=== PATIENT | female | born 1965 | race Caucasian/White ===

== ENCOUNTER → 2018-03-04 11:04 | Outpatient (CLI) | payer OTHER ==
[2011-04-20 12:15] VITALS: BMI 35.1
== END | disposition home or self-care (01) ==
LOC: D.MRI 02-25 11:00
DX: M54.16 Radiculopathy, lumbar region (principal)

== ENCOUNTER → 2018-03-14 12:17 | Outpatient (CLI) | payer OTHER ==
[2011-04-20 12:15] VITALS: BMI 35.1
== END | disposition home or self-care (01) ==
LOC: D.MRI 12:17
DX: G37.9 Demyelinating disease of central nervous system, unspecified (principal)

== ENCOUNTER 2020-03-02 16:18 | Inpatient (IN) | payer BC ==
[~2020-03-02] VITALS: Ht 160 cm; Wt 115.4 kg
[2020-03-02 17:30] LABS: BASOPHILS 0.2 % (0-2); EOSINOPHILS 0 % (0-7); HEMATOCRIT 39.3 % (36.0-48.0); HEMOGLOBIN 12.7 g/dL (12-16); LYMPHOCYTES 20.2 % (15-50); MCH 29.5 pg (26.0-34.0); MCHC 32.3 g/dL (31.0-37.0); MCV 91.2 fL (80.0-100.0); MEAN PLATELET VOLUME 10.3 fL (7.4-10.4); MONOCYTES 4.4 % (2-11); NEUTROPHILS 74.2 % (40-80); PLATELET COUNT 174 10x3/uL (130-400); RBC 4.31 10x6/uL (4.00-5.40); RDW 13.6 % (11.5-14.5); WBC 5.2 10x3/uL (4.8-10.8)
[2020-03-02 17:40] LABS: APTT 27.6 SECONDS (22.8-39.4); INR 0.92 (0.85-1.17); PROTIME 12.3 SECONDS (11.6-15.0)
[2020-03-02 18:00] LABS: ALBUMIN 3.2 g/dL (3.4-5.0); ALKALINE PHOSPHATASE 95 U/L (30-120); ALT (SGPT) 33 U/L (10-68); BILIRUBIN - TOTAL 0.49 mg/dL (0.2-1.3); CALC OSMOLALITY 285 mosm/kg (275-300); CALCIUM 8.4 mg/dL (8.5-10.1); CARBON DIOXIDE 30.5 mmol/L (21.0-32.0); CHLORIDE - SERUM 104 mmol/L (98-107); CKMB 0.3 U/L (0.0-3.6); CREATINE KINASE 62 UL (21-215); CREATININE - SERUM 1.8 mg/dL (0.6-1.3); GLUCOSE 111 mg/dL (74-106); POTASSIUM - SERUM 4.3 mmol/L (3.5-5.1); PRO BNP 40 pg/mL (0-125); PROTEIN - SERUM 7.2 g/dL (6.4-8.2); SODIUM 140 mmol/L (136-145); UREA NITROGEN 30 mg/dL (7-18); eGFR NON AFRICAN AMERICAN 31 mL/min (90-120)
[2020-03-02 18:07] LABS: TROPONIN-I < 0.017 ng/mL (0.000-0.060)
[2020-03-02 18:57] VITALS: BP 111/69
[2020-03-02 19:39] VITALS: BP 114/51
--- NOTE | 2020-03-02 21:54 | NUR ---
REPORT RECEIVED, PT CARE ASSUMED. AWAITING PT'S ARRIVAL TO 2128.
[2020-03-02 22:36] VITALS: BP 161/82
[2020-03-03 03:50] VITALS: BP 141/84
[2020-03-03 06:29] LABS: BASOPHILS 0.3 % (0-2); EOSINOPHILS 0 % (0-7); HEMATOCRIT 36.6 % (36.0-48.0); HEMOGLOBIN 11.8 g/dL (12-16); IMMATURE GRANULOCYTES 0.8 % (0-5); LYMPHOCYTES 17.6 % (15-50); MCH 29.1 pg (26.0-34.0); MCHC 32.2 g/dL (31.0-37.0); MCV 90.4 fL (80.0-100.0); MEAN PLATELET VOLUME 10.3 fL (7.4-10.4); MONOCYTES 3.6 % (2-11); NEUTROPHILS 77.7 % (40-80); PLATELET COUNT 196 10x3/uL (130-400); RBC 4.05 10x6/uL (4.00-5.40); RDW 13.3 % (11.5-14.5)
[2020-03-03 06:40] LABS: WBC 3.6 10x3/uL (4.8-10.8)
[2020-03-03 07:42] VITALS: BP 142/86
[2020-03-03 07:48] LABS: ANION GAP 16.8 mmol/L (8-16); CALCIUM 8.5 mg/dL (8.5-10.1); CREATININE - SERUM 1.4 mg/dL (0.6-1.3); MAGNESIUM - SERUM 2.2 mg/dL (1.8-2.4); PHOSPHOROUS 3.5 mg/dL (2.5-4.9); POTASSIUM - SERUM 4.4 mmol/L (3.5-5.1)
[2020-03-03 07:49] LABS: CARBON DIOXIDE 21.6 mmol/L (21.0-32.0)
[2020-03-03] MEDS ORDERED: HYDROXYCHLOROQ200 MG PO (07:51)
[2020-03-03] MEDS ORDERED: CYCLOBENZAPRINE10 MG PO (07:52)
[2020-03-03] MEDS ORDERED: VOLTAREN75 MG PO (07:52)
[2020-03-03] MEDS ORDERED: VALSARTAN-HCTZ1 EAC2 PO (07:53)
[2020-03-03] MEDS ORDERED: ELAVIL10 MG PO (07:54)
[2020-03-03] MEDS ORDERED: GABAPENTIN300 MG PO (07:56)
[2020-03-03] MEDS ORDERED: GABAPENTIN100 MG PO (07:57)
[2020-03-03] MEDS ORDERED: NEURONTIN600 MG PO (07:57)
[2020-03-03] MEDS ORDERED: VITAMIN D5000 UNI1 PO (07:58)
[2020-03-03] MEDS ORDERED: PROTONIX40 MG PO (07:59)
[2020-03-03] MEDS ORDERED: ZYLOPRIM300 MG PO (07:59)
[2020-03-03] MEDS ORDERED: SYNTHROID50 MCG PO (08:00)
[2020-03-03] MEDS ORDERED: MECLIZINE HCL25 MG PO (08:03)
[2020-03-03 11:59] VITALS: BMI 44.3
--- NOTE | 2020-03-03 12:26 | NUR ---
PT NEGATIVE FOR COVID 19. MADE ROUNDS WITH DR. MCCORMICK. INFORMED PT OF NEGATIVE RESULTS. PT DENIES ANY NEEDS AT THIS TIME. CALL LIGHT IN REACH, NAD NOTED, WILL CONTINUE TO MONITOR.
[2020-03-03 14:37] LABS: BILIRUBIN NEGATIVE (NEGATIVE); GLUCOSE NEGATIVE (NEGATIVE); KETONE NEGATIVE (NEGATIVE); NITRITE NEGATIVE (NEGATIVE); UROBILINOGEN NORMAL (NORMAL)
[2020-03-03 16:32] VITALS: BP 115/62
--- NOTE | 2020-03-03 16:41 | NUR ---
HELPED PT UP TO BATHROOM AND BACK TO BED, PT DENIES ANY NEEDS AT THIS TIME. CALL LIGHT IN REACH, NAD NOTED, WILL CONTINUE TO MONITOR.
[2020-03-04 04:00] VITALS: BP 122/62
[2020-03-04 07:06] LABS: BASOPHILS 0.1 % (0-2); EOSINOPHILS 0 % (0-7); HEMATOCRIT 34.8 % (36.0-48.0); HEMOGLOBIN 11.2 g/dL (12-16); IMMATURE GRANULOCYTES 1.1 % (0-5); LYMPHOCYTES 10.3 % (15-50); MCH 28.9 pg (26.0-34.0); MCHC 32.2 g/dL (31.0-37.0); MCV 89.9 fL (80.0-100.0); MEAN PLATELET VOLUME 10.4 fL (7.4-10.4); NEUTROPHILS 83.5 % (40-80); PLATELET COUNT 213 10x3/uL (130-400); RBC 3.87 10x6/uL (4.00-5.40); RDW 13.6 % (11.5-14.5)
--- NOTE | 2020-03-04 07:20 | NUR ---
RECIEVE REPORT. RESTING IN BED. TEARFULLY EXPRESSES BEING WORRIED ABOUT SPOUSE AT HOME. O2 NC ON FOR SOB. DENIES ANY NEEDS. CONTINUE PLAN OF CARE AND SAFETY PRECAUTIONS.
[2020-03-04 08:00] VITALS: BP 124/58
[2020-03-04 11:00] VITALS: BP 124/59
[2020-03-04 14:21] LABS: ANION GAP 14.1 mmol/L (8-16); CALCIUM 8.6 mg/dL (8.5-10.1); CARBON DIOXIDE 21.3 mmol/L (21.0-32.0); CREATININE - SERUM 1.5 mg/dL (0.6-1.3); MAGNESIUM - SERUM 1.8 mg/dL (1.8-2.4)
[2020-03-04 14:24] LABS: PHOSPHOROUS 2.6 mg/dL (2.5-4.9); POTASSIUM - SERUM 3.4 mmol/L (3.5-5.1)
[2020-03-04 15:00] VITALS: BP 156/54
--- NOTE | 2020-03-04 15:23 | MORECARE ---
CASE MANAGEMENT DISCHARGE SUMMARY PATIENT: JOANNA PROCTRO UNIT: [id number] ADM DATE: 03/02/20 AGE: 54 : 67 SEX: F ROOM/BED: D.0334 AUTHOR: PRINCE LINK PHYSICIAN: REFERRING PHYSICIAN: DMITRIY SUE MD DATE OF SERVICE: 03/04/20 Discharge Plan Patient Name: JOANNA PROCTOR Facility: [facility]:[place] : 1965 Planned Disposition: Home Anticipated Discharge Date: Discharge Date: Expected LOS: 0 Initial Reviewer: [email or web address] Initial Review Date: 03/02/2020 Generated: 03/04/20 4:22 pm Comments DCP- Discharge Planning Updated by [email or web address]: Lisa Fernandez on 03/04/20 2:[address] DC Plan: Return home. Patient will require a walk test prior to DC, if she requires a Nebulizer, would MD please lace the order. CM met with patient to discuss initial discharge planning. Patient is in agreement to proceed with the assessment. Patient reports that she lives at home independently with her , who is blind and has tested positive for COVID. Patient is alert/oriented. Stairs/steps: 4 w/rails. PCP: Dr. Powell. Pharmacy: [facility]. Patient states she has been able to obtain all of her prescribed medications. HHS: No. DME: No. Patient gives permission to speak with family members. Emergency contact: Wilman Proctor (spouse) [phone]. 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 CM discussed the availability of HH, Rehab, SNF, OP Therapy, DME services. At this time, patient denies the need for additional services and feels safe returning to previous environment. Patient denies hospitalization within the past 30 days. Patient denies the use of community resources HIGH PRESSURE CLEANER. Transportation at time of discharge: Unknown. Patient Name: JOANNA PROCTOR Page [phone] at 1523 All edits/amendments must be made on the electronic document DICTATION DATE: 03/04/20 152 [facility] SALES: ANGELINA 03/04/20 152 RPT#: [id number] DC DATE: STATUS: ADM IN [facility] [address] [place] [address] END OF REPORT
--- NOTE | 2020-03-04 15:30 | MORECARE ---
CASE MANAGEMENT DISCHARGE SUMMARY PATIENT: JOANNA PROCTOR UNIT: [id number] ADM DATE: 03/02/20 AGE: 54 : 67 SEX: F ROOM/BED: D.4257 AUTHOR: FARIBADOC PHYSICIAN: REFERRING PHYSICIAN: DMITRIY SUE MD DATE OF SERVICE: 03/04/20 Discharge Plan Patient Name: JOANNA PROCTOR Facility: [facility]:[place] : 1965 Planned Disposition: Home Anticipated Discharge Date: Discharge Date: Expected LOS: 0 Initial Reviewer: [email or web address] Initial Review Date: 03/02/2020 Generated: 03/04/20 4:30 pm Comments DCP- Discharge Planning Updated by [email or web address]: Lisa Fernandez on 03/04/20 2:[address] DC Plan: Return home. Patient will require a walk test prior to DC, if she requires a Nebulizer, would MD please lace the order. CM met with patient to discuss initial discharge planning. Patient is in agreement to proceed with the assessment. Patient reports that she lives at home independently with her , who is blind and has tested positive for COVID. Patient is alert/oriented. Stairs/steps: 4 w/rails. PCP: Dr. Powell. Pharmacy: [facility]. Patient states she has been able to obtain all of her prescribed medications. HHS: No. DME: No. Patient gives permission to speak with family members. Emergency contact: Wilman Proctor (spouse) [phone]. 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 CM discussed the availability of HH, Rehab, SNF, OP Therapy, DME services. At this time, patient denies the need for additional services and feels safe returning to previous environment. Patient denies hospitalization within the past 30 days. Patient denies the use of community resources ENVIRONMENTAL HEALTH AIDE. Transportation at time of discharge: Unknown. DCPIA - Discharge Planning Initial Assessment Updated by [email or web address]: Lisa Fernandez on 03/04/20 3:24 pm * Is the patient Alert and Oriented? Yes * How many steps to enter\exit or inside your home? 4 w/rails * PCP Dr. Powell * Pharmacy [facility] * Preadmission Environment Home with Family * ADLs Independent * Equipment None * Other Equipment May require Nebulizer, Home & portable O2 * List name and contact numbers for known caregivers / representatives who currently or will assist patient after discharge: Eze Proctor spouse) [phone] * Verbal permission to speak to the caregivers and representatives has been obtained from the patient. Yes * Community resources currently utilized None * Please name any agencies selected above. NA * Additional services required to return to the preadmission environment? No * Can the patient safely return to the preadmission environment? Yes * Has this patient been hospitalized within the prior 30 days at any hospital? No Patient Name: JOANNA PROCTOR Page [phone] at 1530 All edits/amendments must be made on the electronic document DICTATION DATE: 03/04/20 153 SWATCH PASTER: ANGELINA 03/04/20 153 RPT#: [id number] DC DATE: STATUS: ADM IN [facility] [address] [place] [address] END OF REPORT
--- NOTE | 2020-03-04 16:23 | NUR ---
ALERT AND ORIENTED X4. SITTING UP IN BED. DROPLET ISOLATION INITIATED. COVID TEST COMPLETE TAKEN TO LAB. REPORTS UPDRAFTS CAUSING ANXIETY. NOTIFY .
[2020-03-04 16:54] LABS: C-REACTIVE PROTEIN 1.3 mg/dL (0.0-0.9)
[2020-03-04 19:14] LABS: BILIRUBIN - TOTAL 0.26 mg/dL (0.2-1.3); PROTEIN - SERUM 6.1 g/dL (6.4-8.2)
[2020-03-04 20:43] VITALS: BP 136/64
--- NOTE | 2020-03-04 20:45 | NUR ---
PT SITTING UP IN BED. WATCHING TV. ALERT AND ORIENTED. PT STATES SHE HAS NO FURTHER NEEDS AT THIS TIME. WILL CONTINUE TO MONITOR. BED LOW. CL IN REACH.
--- NOTE | 2020-03-05 02:11 | NUR ---
RESTING WITH EYES CLOSED, RESPERAIONS EVEN, NO S/S DISTRESS NOTED.
--- NOTE | 2020-03-05 04:13 | NUR ---
I have reviewed this patient and I concur with the Shift Assessment completed by the Licensed Practical Nurse today this shift.
[2020-03-05 08:25] VITALS: BP 139/88
[2020-03-05 11:57] VITALS: BP 158/70
[2020-03-05 13:35] VITALS: BMI 43.2
[2020-03-05 13:54] LABS: BASOPHILS 0.1 % (0-2); EOSINOPHILS 0.1 % (0-7); HEMATOCRIT 36.3 % (36.0-48.0); HEMOGLOBIN 11.6 g/dL (12-16); IMMATURE GRANULOCYTES 1.8 % (0-5); LYMPHOCYTES 7.9 % (15-50); MCH 28.9 pg (26.0-34.0); MCV 90.5 fL (80.0-100.0); MEAN PLATELET VOLUME 10.3 fL (7.4-10.4); MONOCYTES 3.1 % (2-11); PLATELET COUNT 223 10x3/uL (130-400); RBC 4.01 10x6/uL (4.00-5.40); RDW 13.6 % (11.5-14.5)
[2020-03-05 13:55] LABS: WBC 15.3 10x3/uL (4.8-10.8)
[2020-03-05 14:05] LABS: ANION GAP 11.6 mmol/L (8-16); CALCIUM 8.5 mg/dL (8.5-10.1); CARBON DIOXIDE 25.1 mmol/L (21.0-32.0); CREATININE - SERUM 1.4 mg/dL (0.6-1.3); MAGNESIUM - SERUM 2.1 mg/dL (1.8-2.4); PHOSPHOROUS 2.8 mg/dL (2.5-4.9); POTASSIUM - SERUM 3.7 mmol/L (3.5-5.1)
--- NOTE | 2020-03-05 14:11 | NUR ---
IV RESITE FROM LEFT AC TO RIGHT AC, LABS DRAWN AND SENT.
[2020-03-05 16:17] VITALS: BP 158/74
--- NOTE | 2020-03-05 18:34 | NUR ---
I have reviewed this patient and I concur with the Shift Assessment completed by the Licensed Practical Nurse today this shift.
--- NOTE | 2020-03-05 21:32 | NUR ---
RECEIVED PATIENT FROM [facility]. PATIENT TRANSFERS WELL FROM WHEEL CHAIR TO BED WITH ONE PERSON ASSIST. DENIES PAIN AT THIS TIME. ASSESSMENT COMPLETE. CALL LIGHT CLOSE. CPOCC
--- NOTE | 2020-03-06 02:05 | NUR ---
CALL FROM TELEMETRY THAT PATIENT HEART RATE RUNNING IN THE 30S. CHECKED ON PATIENT. AROUSES, STATES SHE FEELS FINE. DENIES DISCOMFORT OR PAIN.
--- NOTE | 2020-03-06 02:26 | NUR ---
PAGESue GARSIA,SUPERVISOR ELECTRONICS INSPECTION TO NOTIFY OF SINUS BRADYCARDIA.
[2020-03-06 04:00] VITALS: BP 141/72
[2020-03-06 06:39] LABS: ANION GAP 14.6 mmol/L (8-16); CALCIUM 9.1 mg/dL (8.5-10.1); CARBON DIOXIDE 20.6 mmol/L (21.0-32.0); CREATININE - SERUM 1.3 mg/dL (0.6-1.3); MAGNESIUM - SERUM 2.3 mg/dL (1.8-2.4); POTASSIUM - SERUM 4.2 mmol/L (3.5-5.1)
[2020-03-06 06:40] LABS: PHOSPHOROUS 3.7 mg/dL (2.5-4.9)
--- NOTE | 2020-03-06 07:05 | NUR ---
A&O RESTING IN BED WITH EYES OPEN. NO C/O PAIN. NO S/S OF ACUTE DISTRESS NOTED. BLE EDEMA-GENERALIZED. ON 3L 02, NC. IV TO RIGHT AC, NS INFUSING @ 75ML/HR. SITE PATENT WITHOUT REDNESS OR SWELLING. ON TELEMETRY SB 43. CARDIOLOGY CONSULTED FOR BRADICARDIA. DENIES ANY NEEDS AT THIS TIME. CALL LIGHT IN REACH. WILL CONTINUE TO MONITOR.
[2020-03-06 09:05] LABS: HEMATOCRIT 36.6 % (36.0-48.0); HEMOGLOBIN 11.7 g/dL (12-16); MCV 90.8 fL (80.0-100.0); MEAN PLATELET VOLUME 10.9 fL (7.4-10.4); PLATELET COUNT 214 10x3/uL (130-400); RBC 4.03 10x6/uL (4.00-5.40); RDW 13.6 % (11.5-14.5); WBC 14.1 10x3/uL (4.8-10.8)
[2020-03-06 09:27] LABS: LYMPHOCYTES 10 % (15-50); MONOCYTES 1 % (2-11); NEUTROPHILS 88 % (40-80); PLATELET ESTIMATE NORMAL; TEAR DROP CELLS OCC
[2020-03-06 09:51] VITALS: BP 104/68
--- NOTE | 2020-03-06 13:28 | NUR ---
I have reviewed this patient and I concur with the Shift Assessment completed by the Licensed Practical Nurse today this shift.
[2020-03-06 13:32] VITALS: BP 171/66
--- NOTE | 2020-03-06 15:10 | NUR ---
PT SITTING UP IN CHAIR. CL IN REACH. PHONE IN REACH. WCTM
[2020-03-06 16:45] VITALS: BP 167/73
--- NOTE | 2020-03-06 16:53 | NUR ---
PT HAS NO NEEDS AT THIS TIME. CL IN REACH. TM
[2020-03-06 20:00] VITALS: BP 150/60
[2020-03-07] VITALS: BP 176/77
[2020-03-07 03:42] VITALS: BP 126/62
[2020-03-07 07:32] LABS: BASOPHILS 0.4 % (0-2); EOSINOPHILS 0.1 % (0-7); HEMATOCRIT 37.6 % (36.0-48.0); HEMOGLOBIN 12.7 g/dL (12-16); IMMATURE GRANULOCYTES 4.7 % (0-5); LYMPHOCYTES 22.7 % (15-50); MCH 30.2 pg (26.0-34.0); MCHC 33.8 g/dL (31.0-37.0); MCV 89.3 fL (80.0-100.0); MEAN PLATELET VOLUME 12.3 fL (7.4-10.4); MONOCYTES 5.4 % (2-11); NEUTROPHILS 66.7 % (40-80); RBC 4.21 10x6/uL (4.00-5.40); RDW 13.8 % (11.5-14.5); WBC 11.2 10x3/uL (4.8-10.8)
[2020-03-07 07:34] LABS: PLATELET COUNT 397 10x3/uL (130-400)
--- NOTE | 2020-03-07 07:49 | NUR ---
RESTING IN BED WITH NO NEEDS NOTED AT THIS TIME.
[2020-03-07 08:00] LABS: ANION GAP 12.3 mmol/L (8-16); CALCIUM 7.6 mg/dL (8.5-10.1); CARBON DIOXIDE 23.1 mmol/L (21.0-32.0); CREATININE - SERUM 1.3 mg/dL (0.6-1.3)
[2020-03-07 08:04] LABS: POTASSIUM - SERUM 3.4 mmol/L (3.5-5.1)
--- NOTE | 2020-03-07 08:44 | NUR ---
2 ATTEMPTS TO CONTACT VASCULAR ACCESS TO GET PT IV ACCESS. NO ANSWER AND NO RETURN CALL YET. WILL CONTINUE TO TRY AND MAKE CONTACT. UNABLE TO START IV, X2 OTHER NURSES HAVE ALSO MADE AN ATTEMPT.
--- NOTE | 2020-03-07 08:52 | NUR ---
PT ALERT AND ORIENTED X4 UPON ENTERING. ADMINISTERED MEDICATION, NO DIFFICULTIES. ASSESSMENT PERFORMED. DENIES ANY NEEDS. WILL CONTINUE TO MONITOR.
[2020-03-07 09:12] VITALS: BP 126/69
[2020-03-07 09:37] VITALS: Ht 160 cm; Wt 115.4 kg
--- NOTE | 2020-03-07 11:54 | NUR ---
I have reviewed this patient and I concur with the Shift Assessment completed by the Licensed Practical Nurse today this shift.
--- NOTE | 2020-03-07 12:07 | NUR ---
ADMINISTERED MEDICATION, RESTING COMFORTABLY. DENIES ANY NEEDS. WILL CONTINUE TO MONITOR.
[2020-03-07 13:21] VITALS: BP 113/67
--- NOTE | 2020-03-07 13:34 | NUR ---
TALKED TO LAURA DELATORRE IN THE ICU. SHE AGREED TO ATTEMPT IV ON PATIENT.
--- NOTE | 2020-03-07 13:58 | NUR ---
Nutrition follow-up: Pt receiving a regular diet with po intake 75-100% of meals Labs reviewed Wt: 243# Pt still with SOB on exerction. PO intake good at this time RDN following.
[2020-03-07 16:00] VITALS: BP 110/59
[2020-03-07 20:00] VITALS: BP 145/72
[2020-03-08] VITALS: BP 107/63
--- NOTE | 2020-03-08 03:08 | NUR ---
ALERT AND ORENTED ABLE TO VOICE NEEDS AND WANTS TO STAFF. NO IV O2 AT 2 LETERS VIA N/C IN PLACE. RESTING IN BED WITH NO NEEDS AT THIS TIME. CALL LIGHT AND WATER IN REACH. NO S/S OF DISTRESS.
[2020-03-08 04:00] VITALS: BP 119/64
--- NOTE | 2020-03-08 07:10 | NUR ---
A&O RESTING IN BED WITH EYES OPEN. NO C/O PAIN. NO S/S OF ACUTE DISTRESS NOTED. ON 2L O2, NC. ON TELEMETRY 56 SB. NO IV ACCESS, PATIENT REFUSED. DENIES ANY NEEDS AT THIS TIME. CALL LIGHT IN REACH. WILL CONTINUE TO MONITOR.
[2020-03-08 08:55] VITALS: BP 113/68
--- NOTE | 2020-03-08 11:30 | EC ---
PATIENT:JOANNA PROCTOR DATE OF SERVICE: 03/02/20 SEX: F MEDICAL RECORD: [id number] DATE OF : [birth year] LOCATION:[facility] AGE OF PATIENT: 54 ADMISSION DATE: 03/02/20 REFERRING PHYSICIAN: INTERPRETING PHYSICIAN: LEANDRA GOODMAN MD ECHOCARDIOGRAM REPORT ECHO CHARGES 4 ECHO COMPLETE Date: 03/03/20 CLINICAL DIAGNOSIS: DYSPNEA ECHOCARDIOGRAPHIC MEASUREMENTS (adult normal given) AC root (d.<3.7cm) 2.6 cm LV Septum d (<1.2 cm> 1.0 cm Valve Excursion 1.6 cm LV Septum (systole) 2.0 cm Left Atria (s.<4.0cm> 5.0 cm LVPW d(<1.2cm) 1.0 cm RV (d.<2.3cm) 2.6 cm LVPW (sytole) 1.9 cm LV diastole(<5.6CM) 5.2 cm MV E-F(>70mm/sec) cm LV systole 2.2 cm LVOT Diameter 1.7 cm MV exc.(>10mm) cm Est.ejection fraction (50-75%) % DOPPLER: LVIT cm/sec A 68.0 cm/sec E 111 cm/sec LA cm/sec RVSP 38.0 mmHg LVOT 133 cm/sec AOP1/2T m/s Asc. Ao 178 cm/sec RVOT 69.0 cm/sec RA cm/sec PA 93.0 cm/sec AV Gradient Peak 13.0 mmHg AV Mean 6.1 mmHg AV Area 1.4 cm MV Gradient Peak 6.7 mmHg MV Mean 1.8 mmHg MV Area cm COMMENTS: Shredding Specialist: 1 PRETTY CHUOE Heart Doctor: 3 Dr. Iniguez TAPE# PACS Pericardial Effusion N DATE OF SERVICE: Adequate 2D, color flow imaging, spectral Doppler, and M-Mode. No LVH. LV internal dimension is normal. Wall motion is normal. EF is greater than or equal to 55%. Aortic valve is tricuspid. No evidence of stenosis by Doppler interrogation. Left atrium is dilated at 5 cm. Mitral valve shows no prolapse. Mild MR. Right-sided chambers are grossly normal. Moderate TR by color flow imaging. ECHOCARDIOGRAM REPORT [id number] JOANNA PROCTOR TRANSINT:[id number] Voice Confirmation ID: [id number] DOCUMENT ID: [id number] LEANDRA GOODMAN MD at 1130 CC: [id number] DICTATION DATE: 03/04/20 1258 DIRECTOR OF COMMUNITY CENTER: 03/04/20 1600 ADM IN [place] [id number] [place] [id number]
[2020-03-08] MEDS ORDERED: OMNICEF300 MG PO (11:34)
[2020-03-08] MEDS ORDERED: VIBRAMYCIN 100100 MG PO (11:34)
[2020-03-08] MEDS ORDERED: FEXOFENADINE HC60 MG PO (11:34)
[2020-03-08] MEDS ORDERED: NYSTATIN100000 UN4 PO (11:34)
[2020-03-08] MEDS ORDERED: MUCINEX600 MG PO (11:35)
[2020-03-08] MEDS ORDERED: FLORAJEN3 CAPS460 MG PO (11:35)
[2020-03-08] MEDS ORDERED: SYMBICORT 16010.2 GM INH (11:35)
[2020-03-08] MEDS ORDERED: FLUTICASONE PRO16 GM NASAL (11:35)
[2020-03-08] MEDS ORDERED: TESSALON PERLE100 MG PO (11:35)
[2020-03-08] MEDS ORDERED: PREDNISONE20 MG PO (11:36)
--- NOTE | 2020-03-08 12:51 | MORECARE ---
CASE MANAGEMENT DISCHARGE SUMMARY PATIENT: JOANNA PROCTOR UNIT: [id number] ADM DATE: 03/02/20 AGE: 54 : 67 SEX: F ROOM/BED: D.2239 AUTHOR: PRINCE LINK PHYSICIAN: REFERRING PHYSICIAN: DMITRIY SUE MD DATE OF SERVICE: 03/08/20 Discharge Plan Patient Name: JOANNA PROCTOR Facility: [facility]:[place] : 1965 Planned Disposition: Home Anticipated Discharge Date: Discharge Date: Expected LOS: 0 Initial Reviewer: [email or web address] Initial Review Date: 03/02/2020 Generated: 03/08/20 1:50 pm Comments DCP- Discharge Planning Updated by [email or web address]: Brigitte Alba on 03/08/20 11:[address] Patient Name: JOANNA PROCTOR Admission Status: ER Accout number: [id number] Admission Date: 03-02-2020 : 1965 Admission Diagnosis:ACUTE RESPIRATORY FAILURE WITH HYPOXIA Attending: DMITRIY SUE Current LOS: 6 Anticipated DC Date: Planned Disposition: Home Primary Insurance: [employer] OUT OF STATE Discharge Planning Comments: CM MET WITH PATIENT. PLANS TO DC TO HOME TODAY. WALK TEST COMPLETED AND DOES NOT QUALIFY FOR OXYGEN. CM TO FOLLOW AND ASSIST NEEDED. Gas Main Fitter Helper: Brigitte Alba DCP- Discharge Planning Updated by [email or web address]: Lisa Fernandez on 03/04/20 2:[address] DC Plan: Return home. Patient will require a walk test prior to DC, if she requires a Nebulizer, would MD please lace the order. CM met with patient to discuss initial discharge planning. Patient is in agreement to proceed with the assessment. Patient reports that she lives at home independently with her , who is blind and has tested positive for COVID. Patient is alert/oriented. Stairs/steps: 4 w/rails. PCP: Dr. Powell. Pharmacy: [facility]. Patient states she has been able to obtain all of her prescribed medications. HHS: No. DME: No. Patient gives permission to speak with family members. Emergency contact: Wilman Proctor (spouse) [phone]. 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 CM discussed the availability of HH, Rehab, SNF, OP Therapy, DME services. At this time, patient denies the need for additional services and feels safe returning to previous environment. Patient denies hospitalization within the past 30 days. 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 Transportation at time of discharge: Unknown. DCPIA - Discharge Planning Initial Assessment Updated by [email or web address]: Lisa Fernandez on 03/04/20 3:24 pm * Is the patient Alert and Oriented? Yes * How many steps to enter\exit or inside your home? 4 w/rails * PCP Dr. Powell * Pharmacy [facility] * Preadmission Environment Home with Family * ADLs Independent * Equipment None * Other Equipment May require Nebulizer, Home & portable O2 * List name and contact numbers for known caregivers / representatives who currently or will assist patient after discharge: Eze Proctor spouse) [phone] * Verbal permission to speak to the caregivers and representatives has been obtained from the patient. Yes * Community resources currently utilized None * Please name any agencies selected above. NA * Additional services required to return to the preadmission environment? No * Can the patient safely return to the preadmission environment? Yes * Has this patient been hospitalized within the prior 30 days at any hospital? No Last DP export: 03/04/20 2:31 pm Patient Name: JOANNA PROCTOR Page [phone] at 1251 All edits/amendments must be made on the electronic document DICTATION DATE: 03/08/20 1250 MOTOR LODGE CLERK: ANGELINA 03/08/20 1250 RPT#: [id number] DC DATE: STATUS: ADM IN [facility] [address] [place] [address] END OF REPORT
--- NOTE | 2020-03-08 14:55 | NUR ---
DISCHARGED PATIENT HOME VIA WHEELCHAIR HOME. WENT OVER DISCHARGE INSTRUCTIONS WITH PATIENT, VERBALIZED UNDERSTANDING. DENIES ANYTHING FURTHER.
--- NOTE | 2020-03-08 15:17 | NUR ---
I have reviewed this patient and I concur with the Shift Assessment completed by the Licensed Practical Nurse today this shift.
--- NOTE | 2020-03-09 12:56 | MORECARE ---
CASE MANAGEMENT DISCHARGE SUMMARY PATIENT: JOANNA PROCTOR UNIT: [id number] ADM DATE: 03/02/20 AGE: 54 : 67 SEX: F ROOM/BED: D.2239 AUTHOR: PRINCE LINK PHYSICIAN: REFERRING PHYSICIAN: DMITRIY SUE MD DATE OF SERVICE: 03/09/20 Discharge Plan Patient Name: JOANNA PROCTOR Facility: [facility]:[place] : 1965 Planned Disposition: Home Anticipated Discharge Date: Discharge Date: 03/08/2020 Expected LOS: 0 Initial Reviewer: [email or web address] Initial Review Date: 03/02/2020 Generated: 03/09/20 1:55 pm Comments DCP- Discharge Planning Updated by [email or web address]: Brigitte Alba on 03/08/20 11:[address] Patient Name: JOANNA PROCTOR Admission Status: ER Accout number: [id number] Admission Date: 03-02-2020 : 1965 Admission Diagnosis:ACUTE RESPIRATORY FAILURE WITH HYPOXIA Attending: DMITRIY SUE Current LOS: 6 Anticipated DC Date: Planned Disposition: Home Primary Insurance: [employer] ([place]) OUT OF STATE Discharge Planning Comments: CM MET WITH PATIENT. PLANS TO DC TO HOME TODAY. WALK TEST COMPLETED AND DOES NOT QUALIFY FOR OXYGEN. CM TO FOLLOW AND ASSIST NEEDED. Sales Strategy Manager: Brigitte Alba DCP- Discharge Planning Updated by [email or web address]: Lsia Rebecca on 03/04/20 2:[address] DC Plan: Return home. Patient will require a walk test prior to DC, if she requires a Nebulizer, would MD please lace the order. CM met with patient to discuss initial discharge planning. Patient is in agreement to proceed with the assessment. Patient reports that she lives at home independently with her , who is blind and has tested positive for COVID. Patient is alert/oriented. Stairs/steps: 4 w/rails. PCP: Dr. Powell. Pharmacy: [facility]. Patient states she has been able to obtain all of her prescribed medications. HHS: No. DME: No. Patient gives permission to speak with family members. Emergency contact: Wilman Proctor (spouse) [phone]. 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 CM discussed the availability of HH, Rehab, SNF, OP Therapy, DME services. At this time, patient denies the need for additional services and feels safe returning to previous environment. Patient denies hospitalization within the past 30 days. Patient denies the use of community resources APPLICATION DEVELOPMENT PROJECT MANAGER. Transportation at time of discharge: Unknown. DCPIA - Discharge Planning Initial Assessment Updated by [email or web address]: Lisa Fernandez on 03/04/20 3:24 pm * Is the patient Alert and Oriented? Yes * How many steps to enter\exit or inside your home? 4 w/rails * PCP Dr. Powell * Pharmacy [facility] * Preadmission Environment Home with Family * ADLs Independent * Equipment None * Other Equipment May require Nebulizer, Home & portable O2 * List name and contact numbers for known caregivers / representatives who currently or will assist patient after discharge: Eze Proctor spouse) [phone] * Verbal permission to speak to the caregivers and representatives has been obtained from the patient. Yes * Community resources currently utilized None * Please name any agencies selected above. NA * Additional services required to return to the preadmission environment? No * Can the patient safely return to the preadmission environment? Yes * Has this patient been hospitalized within the prior 30 days at any hospital? No Last DP export: 03/08/20 11:51 am Patient Name: JOANNA PROCTOR Page [id number] at 1256 All edits/amendments must be made on the electronic document DICTATION DATE: 03/09/20 1255 DIP GUIDER STOVES: ANGELINA 03/09/20 1255 RPT#: [id number] DC DATE:03/08/20 STATUS: DIS IN [facility] [address] [place] [address] END OF REPORT
== END 2020-03-08 15:16 | disposition home or self-care (01) | DRG 193 ==
LOC: D.ER 16:18 → D.MS 17:45 → D.M2 17:45 → D.MS 03-05 21:20
PROVIDERS: Family Medicine; Internal Medicine Pulmonary Disease; ADMIT Family Medicine; ATTEND Family Medicine
DX: J18.9 Pneumonia, unspecified organism (principal); J96.01 Acute respiratory failure with hypoxia; N17.9 Acute kidney failure, unspecified; Z68.41 Body mass index [BMI] 40.0-44.9, adult; E78.5 Hyperlipidemia, unspecified; J45.909 Unspecified asthma, uncomplicated; E03.9 Hypothyroidism, unspecified; K21.9 Gastro-esophageal reflux disease without esophagitis; M79.7 Fibromyalgia; G62.9 Polyneuropathy, unspecified; G47.00 Insomnia, unspecified; E66.9 Obesity, unspecified; I12.9 Hypertensive chronic kidney disease with stage 1 through stage 4 chronic kidney disease, or unspecified chronic kidney disease; N18.9 Chronic kidney disease, unspecified

== ENCOUNTER → 2020-04-16 13:51 | Outpatient (CLI) | payer BC ==
[2020-03-07 09:37] VITALS: BMI 43.2
[~2020-04-16 13:51] MED LIST: CYCLOBENZAPRINE10 MG PO; ELAVIL10 MG PO; FEXOFENADINE HC60 MG PO; FLORAJEN3 CAPS460 MG PO; FLUTICASONE PRO16 GM NASAL; GABAPENTIN100 MG PO; GABAPENTIN300 MG PO; HYDROXYCHLOROQ200 MG PO; MECLIZINE HCL25 MG PO; MUCINEX600 MG PO; NEURONTIN600 MG PO; NYSTATIN100000 UN4 PO; OMNICEF300 MG PO; PREDNISONE20 MG PO; PROTONIX40 MG PO; SYMBICORT 16010.2 GM INH; SYNTHROID50 MCG PO; TESSALON PERLE100 MG PO; VALSARTAN-HCTZ1 EAC2 PO; VIBRAMYCIN 100100 MG PO; VITAMIN D5000 UNI1 PO; VOLTAREN75 MG PO; ZYLOPRIM300 MG PO
== END | disposition home or self-care (01) ==
LOC: D.LAB 13:51
PROVIDERS: ATTEND Internal Medicine Pulmonary Disease
DX: Z11.59 Encounter for screening for other viral diseases (principal)

== ENCOUNTER → 2020-05-02 14:04 | Outpatient (CLI) | payer BC ==
[2020-03-07 09:37] VITALS: BMI 43.2
== END | disposition home or self-care (01) ==
LOC: D.CT 14:04
PROVIDERS: ATTEND Family Medicine
DX: R06.00 Dyspnea, unspecified (principal)

== ENCOUNTER → 2020-05-17 12:29 | Outpatient (CLI) | payer BC ==
[2020-03-07 09:37] VITALS: BMI 43.2
== END | disposition home or self-care (01) ==
LOC: D.LAB 12:29
PROVIDERS: ATTEND Internal Medicine Pulmonary Disease
DX: Z11.59 Encounter for screening for other viral diseases (principal)

== ENCOUNTER → 2020-05-20 14:34 | Outpatient (CLI) | payer BC ==
[2020-03-07 09:37] VITALS: BMI 43.2
== END | disposition home or self-care (01) ==
LOC: D.RT 14:34
PROVIDERS: ATTEND Internal Medicine Pulmonary Disease
DX: U07.1 COVID-19 (principal); J45.909 Unspecified asthma, uncomplicated; D72.829 Elevated white blood cell count, unspecified; R00.1 Bradycardia, unspecified; E66.9 Obesity, unspecified; I10 Essential (primary) hypertension; K21.9 Gastro-esophageal reflux disease without esophagitis; M79.7 Fibromyalgia; G62.9 Polyneuropathy, unspecified; G47.00 Insomnia, unspecified; N18.9 Chronic kidney disease, unspecified

== ENCOUNTER 2020-10-08 13:27 | Emergency (ER) | payer BC ==
[~2020-10-08] VITALS: Ht 160 cm; Wt 115.5 kg
[2020-10-08 13:32] VITALS: BP 110/61; Ht 160 cm; Wt 115.5 kg
[2020-10-08] MEDS ORDERED: LEXAPRO10 MG PO (13:36)
[2020-10-08] MEDS ORDERED: GABAPENTIN300 MG PO (13:38)
[2020-10-08] MEDS ORDERED: TRELEGY ELLIPT1 EACH INH (13:39)
[2020-10-08] MEDS ORDERED: DIOVAN320 MG PO (13:40)
[2020-10-08 14:13] LABS: ANION GAP 12.4 mmol/L (8-16); CALCIUM 9.4 mg/dL (8.5-10.1); CARBON DIOXIDE 25.2 mmol/L (21.0-32.0); CREATININE - SERUM 1.5 mg/dL (0.6-1.3); POTASSIUM - SERUM 3.6 mmol/L (3.5-5.1)
[2020-10-08 14:25] LABS: ALBUMIN 3.8 g/dL (3.4-5.0); BILIRUBIN - TOTAL 0.39 mg/dL (0.2-1.3)
[2020-10-08 14:30] LABS: BASOPHILS 0.2 % (0-2); EOSINOPHILS 0.8 % (0-7); HEMATOCRIT 38.7 % (36.0-48.0); HEMOGLOBIN 12.6 g/dL (12-16); IMMATURE GRANULOCYTES 0.2 % (0-5); LYMPHOCYTE ABS# 2.06 10x3/uL (1.18-3.74); LYMPHOCYTES 20.5 % (15-50); MCH 29.6 pg (26.0-34.0); MCHC 32.6 g/dL (31.0-37.0); MCV 90.8 fL (80.0-100.0); MEAN PLATELET VOLUME 10.6 fL (7.4-10.4); MONOCYTES 4.6 % (2-11); NEUTROPHIL ABS# 7.41 10x3/uL (1.56-6.13); NEUTROPHILS 73.7 % (40-80); RBC 4.26 10x6/uL (4.00-5.40); RDW 14.6 % (11.5-14.5); WBC 10.1 10x3/uL (4.8-10.8)
[2020-10-08 14:39] LABS: PLATELET COUNT 219 10x3/uL (130-400)
[2020-10-08] MEDS ORDERED: PREDNISONE20 MG PO (16:18)
[2020-10-08] MEDS ORDERED: XOPENEX HFA15 GM INH (16:18)
== END 2020-10-08 16:52 | disposition home or self-care (01) ==
LOC: D.ER 13:27
PROVIDERS: Family Medicine
DX: J45.901 Unspecified asthma with (acute) exacerbation (principal); N18.9 Chronic kidney disease, unspecified; R20.2 Paresthesia of skin; G62.9 Polyneuropathy, unspecified; E78.5 Hyperlipidemia, unspecified; J45.909 Unspecified asthma, uncomplicated; K21.9 Gastro-esophageal reflux disease without esophagitis; I12.9 Hypertensive chronic kidney disease with stage 1 through stage 4 chronic kidney disease, or unspecified chronic kidney disease

== ENCOUNTER → 2020-11-01 08:23 | Outpatient (CLI) | payer BC ==
[2020-10-08 13:32] VITALS: BMI 45.0
[~2020-11-01 08:23] MED LIST changes: +DIOVAN320 MG PO; +LEXAPRO10 MG PO; +TRELEGY ELLIPT1 EACH INH; +XOPENEX HFA15 GM INH
== END | disposition home or self-care (01) ==
LOC: D.US 08:23
PROVIDERS: ATTEND Family Medicine
DX: I10 Essential (primary) hypertension (principal)